=== PATIENT | female | born 1960 | race Caucasian/White ===

== ENCOUNTER 2017-09-23 07:53 | Outpatient (CLI) | payer BC ==
--- NOTE | 2017-09-23 09:51 | ULT ---
ULTRASOUND ABDOMEN COMPLETE: Date: 09/23/17 INDICATION: Abdominal pain. TECHNIQUE: Wilson-scale ultrasound evaluation of the liver, gallbladder, spleen, pancreas, common bile duct, kidne ys, abdominal aorta, and inferior vena cava (IVC). FINDINGS: No focal hepatic lesion is demonstrated. There is increased echogenicity of the hepatic parenchyma. P atient is status post cholecystectomy. No significant abnormality of the spleen. No overt hydronephro sis involving either kidney. Avery effect is noted with common duct at 1.0 cm. No ascites or othe r significant intra-abdominal abnormality. Incidental note of an asymmetrically small right kidney, d emonstrated at 9.7 cm in length compared to 11.0 cm in length left kidney. There is partial visualiza tion of the pancreas, grossly unremarkable, which is otherwise obscured by bowel content. IMPRESSION: 1. Findings which are likely related to hepatic steatosis. Correlate with liver function enzymes. 2. Status post cholecystectomy. 3. Additional details are described above. POS: [facility]
== END 2017-09-23 07:54 | disposition home or self-care (01) ==
LOC: SCSULT 07:53
PROVIDERS: ATTEND Family Medicine
DX: R10.9 Unspecified abdominal pain (principal); R93.2 Abnormal findings on diagnostic imaging of liver and biliary tract; Z90.49 Acquired absence of other specified parts of digestive tract
CPT/HCPCS: 76700

== ENCOUNTER 2017-10-17 07:25 | Outpatient (CLI) | payer BC ==
[2017-10-17] MEDS ORDERED: Iopamidol 370 76% 100 ML VIAL ONE (09:00)
--- NOTE | 2017-10-17 10:47 | CT ---
CT ABDOMEN AND PELVIS WITH ORAL AND IV CONTRAST: HISTORY: Abdominal pain. FINDINGS: The lung bases are unremarkable. The liver, spleen, pancreas, adrenal glands are normal. Small low- densities in the kidneys are likely cysts. The patient is post cholecystectomy. No free air, free fluid, or lymphadenopathy is seen in the abdomen or pelvis. The small bowel loops are not abnormally dilated. A normal-appearing appendix is noted. No pericolonic inflammatory cortes es are seen. Uterus and ovaries are present. There are vascular calcifications without evidence of a neurysmal dilatation of the abdominal aorta. There are degenerative changes in the spine. IMPRESSION: No significant abnormalities are seen to account for the patient's abdominal pain. POS: [facility]
== END 2017-10-17 07:26 | disposition home or self-care (01) ==
LOC: SCSCT 07:25
PROVIDERS: ATTEND Internal Medicine Gastroenterology
DX: R10.84 Generalized abdominal pain (principal); R11.10 Vomiting, unspecified
CPT/HCPCS: 74177